=== PATIENT | male | born 2005 | race Caucasian/White ===

== ENCOUNTER 2025-05-27 23:18 | Emergency (ER) | payer OTHER, SELFPAY ==
[2025-05-27 23:27] VITALS: BP 123/86
[2025-05-27 23:55] VITALS: BMI 21.5
[2025-05-28] VITALS: BP 109/68
[2025-05-28 00:31] LABS: Hematocrit 45.6 % (39.0-52.0); Hemoglobin 15.9 g/dL (13.0-18.0); Mean Corp Hgb Conc. 34.9 g/dL (33.0-37.0); Mean Corpuscular Volume 89.4 fL (80.0-94.0); Nucleated Red Blood Cells % 0 % (-); Platelet Count 305 10^3/uL (130-400); Red Cell Dist. Width 11.5 % (11.5-14.5)
[2025-05-28 00:46] LABS: Urine Character Clear (Clear)
[2025-05-28 00:53] LABS: Urine Red Blood Cell 0-2 /HPF (0-2); Urine White Cell 0-2 /HPF (0-5)
[2025-05-28 00:54] LABS: Urine Squamous Cell 0-2 /LPF (Few)
[2025-05-28 00:58] LABS: ALT (SGPT) 28 U/L (0-50); AST (SGOT) 35 U/L (17-59); Albumin 5.7 g/dl (3.5-5.0); Alkaline Phosphatase 82 U/L (38-126); Blood Urea Nitrogen 21 mg/dl (9-20); Calcium 10.7 mg/dl (8.4-10.2); Carbon Dioxide 21 mmol/L (22-30); Chloride 99 mmol/L (98-107); Estimated Creatinine Clearance 123 ml/min; Glucose 149 mg/dl (70-99); Potassium 4.4 mmol/L (3.5-5.1); Sodium 140 mmol/L (135-145); Total Protein 9.3 g/dl (6.3-8.2); eGFR > 60.00
[2025-05-28 01:00] VITALS: BP 99/63
--- NOTE | 2025-05-28 01:43 | ED.GENMED ---
History of Present Illness
General
Chief Complaint: Abdominal Pain
Source: patient
Exam Limitations: none
Time Seen by Provider: 05/28/25 01:32
Nursing documentation reviewed up to this point in time: agreed with
History of Present Illness
History of Present Illness:
Note:
CHIEF COMPLAINT(S)
Abdominal pain and vomiting.
HISTORY OF PRESENT ILLNESS
The patient is a 19-year-old male who presents with acute onset abdominal pain starting today. The pain is described as diffuse across the stomach and extends into the chest, occurring intermittently after episodes of vomiting. The patient first
experienced abdominal pain, followed subsequently by brief episode of chest pain. He reports having a similar episode one to two months ago after drinking heavily but denies any bloody emesis, rectal bleeding, or melena. The patient discloses
regular marijuana use but denies recent alcohol consumption contributing to the symptoms. He reports that he had similar episode in the past that resolved with hot shower. He mentions consuming chicken bites yesterday, after which he started
vomiting. The patient has not been able to retain oral intake, as attempts with self-medication have resulted in emesis. There is no history of abdominal surgery, fever, or recent infections. He has had no diarrhea.
PAST MEDICAL AND SURIGICAL HISTORY
No history of abdominal surgeries noted.
REVIEW OF SYSTEMS
Gastrointestinal: Abdominal pain, vomiting, no hematemesis, no melena.
Cardiovascular: Intermittent chest pain following vomiting.
General: No fever reported.
PHYSICAL EXAM
General: Alert, no acute distress.
Skin: Warm, dry.
Head: Normocephalic, atraumatic.
Neck: Supple, trachea midline.
Eye, Ears, Nose, Mouth, and Throat: Oral mucosa moist.
Cardiovascular: Normal peripheral perfusion, No edema. Regular rate and rhythm, no murmurs.
Respiratory: Respirations are non-labored. No wheezes, rales, or rhonchi.
Gastrointestinal: Abdomen nondistended and soft, diffuse tenderness noted.
Back: Normal range of motion, Normal alignment.
Musculoskeletal: Normal range of motion, normal strength.
Neurological: Alert and oriented to person, place, time, and situation, No focal neurological deficit observed.
Psychiatric: Cooperative, appropriate mood & affect.
SOCIAL HISTORY
The patient reports daily marijuana use, particularly using more today to see if it would help with symptoms.
PROBLEM LIST
Acute: Abdominal pain, Vomiting
PLAN
1. Initiate pain management and antiemetic treatment.
2. Conduct abdominal imaging, particularly a CT scan, to rule out significant pathology such as a perforated ulcer.
3. Monitor for further gastrointestinal bleeding or persistent symptoms.
4. Reevaluation following imaging techniques to assess for alternative diagnoses.
5. Provide intravenous hydration and reassess oral intake tolerance.
DIFFERENTIAL DIAGNOSIS
The Differential Diagnosis includes, in no particular order and is not limited to:
1. Viral gastroenteritis
2. Gastritis
3. Peptic ulcer disease
4. Non-perforated ulcer
5. Cholecystitis
6. Pancreatitis
7. Appendicitis
8. Gastroesophageal reflux disease
9. Biliary colic
10. Magali-Rice tear
Disposition:
SUMMARY OF ENCOUNTER
A 20-year-old male presented to the emergency department with diffuse abdominal pain and multiple episodes of vomiting, approximately 20 to 30 times in a day. The patient has a history of similar episodes that resolved when taking hot showers. He
admits to daily marijuana use. Based on the history and physical exam, the presentation is consistent with cannabinoid hyperemesis syndrome. The patient was treated with IV fluids, ondansetron, and haloperidol. An ECG was performed and did not
demonstrate any evidence of prolonged QT interval. A CT scan of the abdomen revealed mild thickening of the colon, raising concern for possible colitis, although the patient denied having diarrhea, bloody stools, or any fever. After receiving
treatment, the patient was able to tolerate oral intake and reported feeling much better.
DISPOSITION
Discharge.
ASSESSMENT
Based on the presentation and history, the most likely assessment is cannabinoid hyperemesis syndrome.
EMERGENCY TREATMENTS ADMINISTERED
The patient was administered IV fluids, ondansetron (Zofran), and haloperidol (Haldol).
PLAN
1. Advise the patient to reduce or cease marijuana use to prevent recurrent episodes of cannabinoid hyperemesis syndrome.
2. Discharge the patient with instructions for hydration and dietary adjustments as needed.
3. Suggest that the patient seek follow-up care with a primary care provider for further evaluation and management if symptoms recur.
INDEPENDENT REVIEW OF LABS AND INTERPRETATION OF TESTS
- My independent interpretation of the ECG shows no evidence of a prolonged QT interval.
- My independent CT scan interpretation indicates mild thickening of the colon, raising concerns of questionable colitis.
PATIENT EDUCATION AND COUNSELING
The patient was counseled on the potential link between daily marijuana use and recurrent episodes of abdominal pain and vomiting, consistent with cannabinoid hyperemesis syndrome. Advised on the importance of avoiding cannabis to prevent future
episodes. Discussed the potential need for further evaluation if symptoms recur.
FOLLOW-UP INSTRUCTIONS
The patient should follow up with a primary care physician for ongoing management and evaluation if symptoms return.
MEDICATION RECONCILIATION
- Ondansetron (Zofran)
- Haloperidol (Haldol)
MEDICAL DECISION MAKING
- Number and Complexity of Problems Addressed: Acute episode of cannabinoid hyperemesis syndrome.
- Differential Diagnosis: Viral gastroenteritis, gastritis, peptic ulcer disease, cholecystitis, pancreatitis, appendicitis, gastroesophageal reflux disease, biliary colic, Magali-Rice tear.
- Data:
Category 1:
- Independent interpretation of ECG: No prolonged QT interval.
- Independent interpretation of CT scan: Mild thickening of the colon, questionable colitis.
- Risk:
- Prescription medication was administered (ondansetron and haloperidol).
- Consideration of Admission/Observation: Escalation of care including admission/observation was considered given the complexity and risk of the patients presenting complaint, exam findings, and/or their underlying comorbidities. However, ultimately
I feel the patient is safe for outpatient management with close follow-up. Reasoning: Work-up reassuring, does not reveal any acute life/organ-threatening processes, patients symptoms well controlled upon reevaluation, reexamination is reassuring,
vitals are stable, patient agreeable with discharge, reliable for follow-up.
DIAGNOSIS
- Cannabinoid Hyperemesis Syndrome (ICD-10: F12.988)
- Questionable Colitis (ICD-10: K52.9)
Review of Systems
Review of Systems
All Other Systems: ROS reviewed and negative except as documented in HPI and ROS
Phy Exam
Physical Exam
Physical Exam:
see hpi
Course
Orders/Labs/Results
Orders:
Orders
05/28/25 00:14
CMP [Comprehensive Metabolic Panel] Urgent
Complete Blood Count/With Diff Urgent
Lipase Urgent
Comment: ADDED
Urinalysis Reflex To Culture Urgent
Date Specimen was Collected: 05/28/25
Time Specimen was Collected: 00:10
Urine Microscopic Reflex Cult Urgent
Urine Culture Urgent
CORETTA Source: U
Specimen Description:
Date Specimen was Collected: 05/28/25
Time Specimen was Collected: 00:10
05/28/25 01:49
CT Abd/pelvis W Iv Cont Urgent
Comment:
Reason For Exam: periumbilical pain
0.9% Sodium Chloride 1000 ml [Nss] 1,000 ml IV BOLUS
Ketorolac [Toradol] 15 mg IV NOW STA
Ondansetron Injectable [Zofran] 4 mg IV NOW STA
05/28/25 02:10
Add On- LAB Urgent
Tests Added?: lipase
05/28/25 02:38
Electrocardiogram (*1) Urgent
Reason for Study: QTc Monitoring
05/28/25 02:41
Haloperidol Lactate [Haldol] 2 mg IV NOW STA
Abnormal Lab Results
05/28/25
00:14
WBC 21.1 H 10^3/uL
(4.8-10.8)
MCH 31.2 H pg
(27.0-31.0)
Abs Immat Gran (auto) 0.1 H 10^3/uL
(0-0.05)
Absolute Neuts (auto) 19.2 H 10^3/uL
(1.4-6.5)
Absolute Lymphs (auto) 0.9 L 10^3/uL
(1.2-3.4)
Absolute Monos (auto) 0.7 H 10^3/uL
(0.1-0.6)
Immature Gran % 0.6 H %
(0-0.5)
Neutrophils % 91.1 H %
(42.2-75.2)
Lymphocytes % 4.5 L %
(20.5-51.1)
Carbon Dioxide 21 L mmol/L
(22-30)
BUN 21 H mg/dl
(9-20)
Glucose 149 H mg/dl
(70-99)
Calcium 10.7 H mg/dl
(8.4-10.2)
Total Protein 9.3 H g/dl
(6.3-8.2)
Albumin 5.7 H g/dl
(3.5-5.0)
Urine Ketones 2+ A
(Negative)
Urine Bilirubin 1+ A
(Negative)
Leukocyte Esterase Rfl 1+ A
(Negative)
Urine Albumin (Reflex) 3+ A
(Neg - Trace)
05/28/25 00:14
05/28/25 00:14
Vital Signs
Initial and Last Documented VS:
Initial Vital Signs
Temp Pulse Resp BP Pulse Ox
97.9 F 92 16 123/86 98
05/27/25 23:27 05/27/25 23:27 05/27/25 23:27 05/27/25 23:27 05/27/25 23:27
Last Documented Vital Signs
Temp Pulse Resp BP Pulse Ox
98.1 F 97 19 122/103 95
05/28/25 00:07 05/28/25 04:30 05/28/25 04:30 05/28/25 04:00 05/28/25 04:30
*Pulse Oximetry
SaO2: 99
Oxygen Mode of Delivery: Room air
Patient hypoxic: no
*Critical Care Note
Total Time (30-74mins, 75-104mins- exclusive of procedures): Not Applicable
ED Attending Note
-
Portions of this chart may have been created with voice recognition software.� Occasional wrong word or��sound alike� substitutions may have occurred due to the inherent limitations of voice recognition software.
Discharge Plan
Departure
Patient Disposition: Home (Routine Discharge)
Date of Disposition: 05/28/25
Time of Disposition: 04:18
Patient with high blood pressure during this ER visit?: Yes
Condition: Good
Discharge Problem:
Cannabinoid hyperemesis syndrome
Instructions: Cannabis hyperemesis syndrome, BLOOD PRESSURE
Activity Restrictions/Additional Instructions:
Please try to decrease marijuana intake. Please continue to monitor your symptoms. Please follow-up with your primary care provider in 1 week for reassessment
PLEASE RETURN TO THE ER SHOULD YOU DEVELOP CHEST PAIN, SHORTNESS OF BREATH, INTRACTABLE NAUSEA OR VOMITING, BLOODY STOOLS, RECTAL BLEEDING, OR ANY OTHER SIGNS OR SYMPTOMS WORRISOME TO YOU.
Interventions
Interventions:
*Risk Screen - Suicide Last Done: 05/27/25 23:33
*General Assessment Last Done: 05/27/25 23:56
*Neglect/Abuse Screening Last Done: 05/27/25 23:33
*ED- Fall Risk Assessment Last Done: 05/28/25 01:19
*ED COVID-19 Vaccine History Last Done: 05/27/25 23:56
*ED Influenza Vaccine History Last Done: 05/27/25 23:56
*Nursing Disposition Last Done: 05/28/25 04:48
WG-Qoxpze-Zwmzqckrpv Assessment Last Done: 05/27/25 23:45
Discharge Date and Time
Discharge Date/Time: 05/28/25 04:56
Print Language: CZECH
[2025-05-28] MEDS: NSS 1000 IV (01:58)
[2025-05-28] MEDS: TORADOL 15 MG IV (01:59)
[2025-05-28] MEDS: ZOFRAN 4 MG IV (01:59)
[2025-05-28 02:32] VITALS: BP 128/73
[2025-05-28 02:42] LABS: Lipase 29 U/L (23-300)
[2025-05-28] MEDS: HALDOL 2 MG IV (02:52)
[2025-05-28 03:00] VITALS: BP 119/65
[2025-05-28 04:00] VITALS: BP 122/103
== END 2025-05-28 04:56 | disposition home or self-care (01) ==
LOC: EMR 23:18
PROVIDERS: EMERGENCY PHYSICIAN Emergency Medicine; FAMILY PHYSICIAN Nurse Practitioner Family
DX: R11.16 Cannabis hyperemesis syndrome (principal); R10.84 Generalized abdominal pain; F12.988 Cannabis use, unspecified with other cannabis-induced disorder
CPT/HCPCS: 96374; 96375; 96361; 99284; 74177; 80053; 81003; 81015; 83690; 85025; 87086; 93005; Q9967